=== PATIENT | male | born 1945 | race Caucasian/White ===

== ENCOUNTER → 2018-10-29 | Outpatient (CLI) | payer OTHER ==
[~2018-10-29] MED LIST: (None)50 MG PO; ANDROGEL 1% TOP; ANDROGEL1.25 GM; ASPI325 PO; ASPI325EC PO; ATOR20 PO; Androgel5 GM TOP; Aspirin EC325 MG PO; Aspirin EC81 MG; B Complex #11 EACH PO; B Complex1 EAC2 PO; Bystolic10 MG PO; CALCIUM 1,0001 EACH PO; CARV25 PO; CHOL10002; CHOL10002 PO; CHROMIUM PIC1000 MCG PO; CINNAMON PLUS1 EACH PO; CO Q10100 MG PO; Cialis20 MG; Cinnamon500 MG; Cinnamon500 MG PO; DHA100 MG PO; DULO30 PO; DULO60; ENOX40I SC; FENO145 PO; FENO67; FISH OIL OMEGA PO; FISH OIL OMEGA1 EACH PO; FISH1000 PO; FLONASE ALLERG9.9 ML NS; FLUT44OIA INH; Flonase 0.05% N16 GM; GLYB5 PO; Galzin25 MG PO; Glyburide5 MG PO; HUMALOG KW200 UNIT/1; HYDCHL25; HYDCHL25 PO; HYDMOR2 PO; Humalog100 UNIT/1; Humalog100 UNIT/1 SC; Hydrochlorothia25 MG PO; INSULANPEN; INSULANPEN SC; IRBE150 PO; Klor-Con 1010 MEQ; LISI20; LOVA40; MAGCHL64ER PO; METF500; METF850 PO; MORP15ER PO; MORP30ER PO; MULTIVITAMIN PO; MUPI2TO TOP; NEBI10 PO; NIAC250ER; NIAC500 PO; NIACIN ER500 MG PO; OMEG1CAP30 PO; OXYACE5T PO; OXYC10TA19 PO; OXYC15ER PO; OXYC5 PO; POTA10T PO; POTCHL10ER PO; SITA100T2 PO; TAMS.4ER PO; UBID10 PO; VITAMIN D34000 UNIT PO; ZINC PO; ZINC15 PO; ZOLP10
== END | disposition home or self-care (01) ==
LOC: PLD 14:19 → LAB SHORT 14:19
DX: L57.0 Actinic keratosis (principal)
CPT/HCPCS: 88305

== ENCOUNTER 2018-12-23 06:58 | Day surgery (SDC) | payer OTHER ==
[~2018-12-23] VITALS: Ht 172.7 cm; Wt 87.1 kg
--- NOTE | 2018-12-23 12:57 | NUR ---
12/23/18 Funmilayo De La Garza TOOK REPORT FROM KALA LOUIS. PATIENT IN RECLINER AND VERBALIZES HE IS READY TO GO HOME AND ASKS ME TO TAKE HIS IV OUT. DISCHARGE INSTRUCTIONS DISCUSSED WITH PATIENT AND FAMILY. ALL QUESTIONS ANSWERED. PATIENT ABLE TO TRANSFER TO TRANSPORT CHAIR BUT IS UNSTEADY AND LOOSES HIS BALANCE EASILY. PATIENT TO THE CAR AND HE IS ABLE TO TRANSFER TO THE CAR WITH MINIMAL ASSISTANCE BUT I DO WARN THE THAT HE WAS UNSTEADY AND NEED TO TAKE CAUTION WITH WALKING HIM INTO THE HOUSE. VERBALIZES UNDERSTANDING. ALSO, I OFFERED THE PATIENT THE MOUSTACHE DRESSING THAT GOES AROUND THE EARS BUT HE REFUSED THIS SAYING IT WOULD WORK VERY WELL DUE TO HIS HEARING AIDS. PATIENT WAS DISCHARGED IN STABLE CONDITION
== END 2018-12-23 12:50 | disposition home or self-care (01) ==
LOC: ORSCSDS 06:58
PROVIDERS: Otolaryngology
PROC: 099T8ZZ Drainage of Left Frontal Sinus, Via Natural or Artificial Opening Endoscopic (ICD-10-PCS; principal; 2018-12-23 08:15)
PROC: 099W8ZZ Drainage of Right Sphenoid Sinus, Via Natural or Artificial Opening Endoscopic (ICD-10-PCS; principal; 2018-12-23 08:15)
PROC: 099V8ZZ Drainage of Left Ethmoid Sinus, Via Natural or Artificial Opening Endoscopic (ICD-10-PCS; principal; 2018-12-23 08:15)
PROC: 099U8ZZ Drainage of Right Ethmoid Sinus, Via Natural or Artificial Opening Endoscopic (ICD-10-PCS; principal; 2018-12-23 08:15)
PROC: 099X8ZZ Drainage of Left Sphenoid Sinus, Via Natural or Artificial Opening Endoscopic (ICD-10-PCS; principal; 2018-12-23 08:15)
PROC: 099Q8ZZ Drainage of Right Maxillary Sinus, Via Natural or Artificial Opening Endoscopic (ICD-10-PCS; principal; 2018-12-23 08:15)
PROC: 099R8ZZ Drainage of Left Maxillary Sinus, Via Natural or Artificial Opening Endoscopic (ICD-10-PCS; principal; 2018-12-23 08:15)
PROC: 099S8ZZ Drainage of Right Frontal Sinus, Via Natural or Artificial Opening Endoscopic (ICD-10-PCS; principal; 2018-12-23 08:15)
PROC: 8E09XBZ Computer Assisted Procedure of Head and Neck Region (ICD-10-PCS; principal; 2018-12-23 08:15)
DX: J32.4 Chronic pansinusitis (principal); I10 Essential (primary) hypertension; E11.9 Type 2 diabetes mellitus without complications; G47.33 Obstructive sleep apnea (adult) (pediatric); F17.210 Nicotine dependence, cigarettes, uncomplicated; Z79.899 Other long term (current) drug therapy; Z79.4 Long term (current) use of insulin; Z79.82 Long term (current) use of aspirin
CPT/HCPCS: 82947; C2625; J0330; J1100; J2250; J2370; J2405; J2704; J2710; J3010; J3301; J7120

== ENCOUNTER → 2019-01-13 | Outpatient (CLI) | payer OTHER | END | disposition home or self-care (01) | LOC: LAB SHORT 10:32 → PLD 10:32 | DX: L57.0 Actinic keratosis (principal) | CPT/HCPCS: 88305 ==

== ENCOUNTER 2019-04-26 18:51 | Emergency (ER) | payer OTHER ==
[~2019-04-26] VITALS: Ht 170.2 cm; Wt 83.0 kg
[~2019-04-26 18:51] MED LIST changes: -ALBU90OI INH; -ATOR80 PO; -BASAGLAR K100 UNIT/1 SC; -DULO60 PO; -METF500 PO; -Prinivil10 MG PO
[2019-04-26] MEDS ORDERED: ASPI325 PO (21:35)
[2019-04-26] MEDS ORDERED: NEBI10 PO (21:35)
[2019-04-26] MEDS ORDERED: ATOR80 PO (21:35)
[2019-04-26] MEDS ORDERED: DULO30 PO (21:36)
[2019-04-26] MEDS ORDERED: DULO60 PO (21:36)
[2019-04-26] MEDS ORDERED: FENO145 PO (21:37)
[2019-04-26] MEDS ORDERED: SITA100T2 PO (21:37)
[2019-04-26] MEDS ORDERED: Flonase 0.05% N16 GM (21:37)
[2019-04-26] MEDS ORDERED: Prinivil10 MG PO (21:38)
[2019-04-26] MEDS ORDERED: BASAGLAR K100 UNIT/1 SC (21:38)
[2019-04-26] MEDS ORDERED: METF500 PO (21:39)
[2019-04-26] MEDS ORDERED: TAMS.4ER PO (21:40)
[2019-04-26] MEDS ORDERED: ALBU90OI INH (21:41)
== END 2019-04-26 22:39 | disposition short-term general hospital (02) ==
LOC: ER 18:51
DX: G93.89 Other specified disorders of brain (principal); H92.12 Otorrhea, left ear; Z79.4 Long term (current) use of insulin; Z79.899 Other long term (current) drug therapy; Z79.82 Long term (current) use of aspirin; I10 Essential (primary) hypertension; E78.5 Hyperlipidemia, unspecified; E11.9 Type 2 diabetes mellitus without complications; K21.9 Gastro-esophageal reflux disease without esophagitis; Z87.891 Personal history of nicotine dependence
CPT/HCPCS: 70450; 80053; 82550; 85025; 96374; 96375; 99285-25; J0696; J3370; J7050

== ENCOUNTER → 2019-04-26 | Outpatient (CLI) | payer OTHER ==
[~2019-04-26] MED LIST changes: +ALBU90OI INH; +ATOR80 PO; +BASAGLAR K100 UNIT/1 SC; +DULO60 PO; +METF500 PO; +Prinivil10 MG PO
[2019-04-26 18:07] LABS: BASOPHILS ABSOLUTE AUTO 0.02 K/mm3 (0.00-0.23); BASOPHILS PERCENT AUTO 0 % (0-2); EOSINOPHILS ABSOLUTE AUTO 0.07 K/mm3 (0.00-0.68); EOSINOPHILS PERCENT AUTO 1 % (0-6); Hematocrit 39.8 % (37.0-53.0); Hemoglobin 12.9 g/dL (13.5-17.5); IMMATURE GRAN ABSOLUTE AUTO 0.02 K/mm3 (0.00-0.10); IMMATURE GRAN PERCENT AUTO 0 % (0-1); LYMPHOCYTES ABSOLUTE AUTO 1.61 K/mm3 (0.84-5.20); LYMPHOCYTES PERCENT AUTO 21 % (21-46); MONOCYTES ABSOLUTE AUTO 0.71 K/mm3 (0.16-1.47); MONOCYTES PERCENT AUTO 9 % (4-13); Mean Corpuscular HGB Conc 32.4 g/dL (31.5-36.5); Mean Corpuscular Volume 83 fL (80-100); Mean Platelet Volume 9.3 fL (9.1-12.4); NEUTROPHILS ABSOLUTE AUTO 5.17 K/mm3 (1.96-9.15); NEUTROPHILS PERCENT AUTO 68 % (41-73); Platelet Count 270 K/mm3 (150-400); RDW Coefficient Variation 14.4 % (11.7-14.2); RDW Standard Deviation 43.7 fL (35.1-46.3); Red Blood Cell Count 4.78 M/mm3 (4.30-5.90)
[2019-04-26 18:24] LABS: Albumin, Blood 3.7 g/dL (3.4-5.0); Albumin/Globulin Ratio 1.1 (0.8-1.8); Bilirubin, Total 0.4 mg/dL (0.1-1.0); Bun/Creatinine Ratio 20.3 (12.0-20.0); Calcium, Blood 9.4 mg/dL (8.5-10.1); Creatinine, Blood 1.23 mg/dL (0.60-1.20); Globulin, Blood 3.5 g/dL (2.2-4.0); Potassium, Blood 3.9 mmol/L (3.5-5.5); Total Protein, Blood 7.2 g/dL (6.4-8.2)
== END ==
LOC: LAB EV 18:01 → LAB SHORT 18:01
PROVIDERS: Emergency Medicine
DX: R53.83 Other fatigue (principal)
CPT/HCPCS: 80053; 82550; 85025

== ENCOUNTER → 2020-02-18 | Outpatient (CLI) | payer OTHER ==
[~2020-02-18] MED LIST changes: +ALBU90OI INH; +ATOR80 PO; +BASAGLAR K100 UNIT/1 SC; +DULO60 PO; +METF500 PO; +Prinivil10 MG PO
[2020-02-21 13:23] LABS: Protein, Urine Quantitative 5.6 mg/dL (0.0-11.9)
[2020-02-21 13:28] LABS: Microalbumin, Urine Quant. <5.000 mg/L (0.000-20.000)
== END | disposition home or self-care (01) ==
LOC: LAB SHORT 10:11 → LAB 10:11 → OLS 10:11 → LAB SHORT 02-21 10:11
PROVIDERS: Internal Medicine Nephrology
DX: N18.30 Chronic kidney disease, stage 3 unspecified (principal); D63.1 Anemia in chronic kidney disease
CPT/HCPCS: 81050; 82043; 82570; 84156

== ENCOUNTER 2021-03-06 09:21 | Emergency (ER) | payer OTHER ==
[~2021-03-06] VITALS: Ht 172.7 cm; Wt 85.3 kg
== END 2021-03-06 10:22 | disposition home or self-care (01) ==
LOC: ER 09:21
DX: M25.511 Pain in right shoulder (principal); I10 Essential (primary) hypertension; E78.5 Hyperlipidemia, unspecified; E11.9 Type 2 diabetes mellitus without complications; J45.909 Unspecified asthma, uncomplicated; K21.9 Gastro-esophageal reflux disease without esophagitis; Z79.4 Long term (current) use of insulin; Z79.84 Long term (current) use of oral hypoglycemic drugs; Z79.82 Long term (current) use of aspirin; Z79.899 Other long term (current) drug therapy; Z87.891 Personal history of nicotine dependence
CPT/HCPCS: 73000; 99283-25

== ENCOUNTER → 2021-10-25 | Outpatient (CLI) | payer OTHER | END | disposition home or self-care (01) | LOC: LAB SHORT 11:03 → PLD 11:03 | DX: D04.4 Carcinoma in situ of skin of scalp and neck (principal) | CPT/HCPCS: 88305 ==

== ENCOUNTER → 2023-02-24 | Outpatient (CLI) | payer OTHER ==
[2023-02-25 10:39] LABS: Stool Occult Bld Immuno 1 Negative (NEGATIVE)
== END ==
LOC: LAB 09:50 → LAB SHORT 09:50
PROVIDERS: Physician Assistant
DX: D64.89 Other specified anemias (principal)
CPT/HCPCS: 82274

== ENCOUNTER → 2023-04-01 | Outpatient (CLI) | payer OTHER | LOC: LAB 12:13 → LAB SHORT 12:13 | DX: L72.0 Epidermal cyst (principal) | CPT/HCPCS: 88304 ==